=== PATIENT | female | born 1980 | race Two or more races ===

== ENCOUNTER 2017-09-29 09:20 | Emergency (ER) | payer OTHER ==
[2017-09-29 09:37] VITALS: BP 124/76; PULSE 78; TEMP 98.6; BMI 29.5
== END 2017-09-29 11:00 | disposition left against medical advice (07) ==
LOC: JERFT 09:20
DX: Z53.21 Procedure and treatment not carried out due to patient leaving prior to being seen by health care provider (principal)
CPT/HCPCS: 99281-25